=== PATIENT | male | born 1985 | race Caucasian/White ===

== ENCOUNTER 2019-02-22 11:19 | Emergency (ER) | payer MEDICAID ==
[~2019-02-22] VITALS: Ht 180.3 cm; Wt 68.2 kg
[~2019-02-22 11:19] MED LIST: BACTRIM 400-801 TAB PO; PERCOCET 10/3251 TA1 PO
[2019-02-22 11:21] VITALS: Ht 180.3 cm; Wt 68.2 kg
[2019-02-22] MEDS ORDERED: VOLTAREN75 MG PO (12:43)
[2019-02-22] MEDS ORDERED: TYLENOL W/CODEI1 TAB PO (12:46)
[2019-02-22 13:38] VITALS: BP 118/78
== END 2019-02-22 13:39 | disposition home or self-care (01) ==
LOC: D.ER 11:19
DX: S62.306A Unspecified fracture of fifth metacarpal bone, right hand, initial encounter for closed fracture (principal); W22.01XA Walked into wall, initial encounter; F17.210 Nicotine dependence, cigarettes, uncomplicated

== ENCOUNTER 2019-03-06 09:02 | Day surgery (SDC) | payer MEDICAID ==
[~2019-03-06] VITALS: Ht 182.9 cm; Wt 71.2 kg
[~2019-03-06 09:02] MED LIST changes: +TYLENOL W/CODEI1 TAB PO; +VOLTAREN75 MG PO
[2019-03-06] MEDS ORDERED: IBUPROFEN600 MG PO (10:28)
[2019-03-06] MEDS ORDERED: BAYER CHEWABLE81 MG PO (10:29)
[2019-03-06 10:37] VITALS: BP 122/79; Ht 182.9 cm; Wt 71.2 kg
--- NOTE | 2019-03-06 13:56 | NUR ---
PATIENT HAD VISABLE DIRT ON HANDS AND UNDER FINGERNAILS ON OPERATIVE HAND WELL BLACK CAKED ON DIRT ON FEET. WASHED OPERATIVE ARM WITH HIBICLEANS AND DRIED WITH STERILE TOWEL PRIOR TO CHLORAPREP.
[2019-03-06] MEDS ORDERED: HYDROCODON-ACE1 EA10 PO (14:16)
--- NOTE | 2019-03-13 10:50 | OP ---
PATIENT NAME: HOLDEN COATS JR MEDICAL RECORD: [id number] :87 LOCATION:[facility] ADMISSION DATE: SURGEON: MARIBEL MULLINS MD DATE OF OPERATION: 03/06/2019 PREOPERATIVE DIAGNOSES: 1. Displaced fracture of the right fourth metacarpal base. 2. Displaced fracture of the right fifth metacarpal base. 3. Carpal tunnel syndrome of the right wrist. POSTOPERATIVE DIAGNOSES: 1. Displaced fracture of the right fourth metacarpal base. 2. Displaced fracture of the right fifth metacarpal base. 3. Carpal tunnel syndrome of the right wrist. PROCEDURE: 1. Open reduction internal fixation of the right fourth metacarpal base. 2. Open reduction internal fixation of the right fifth metacarpal base. 3. Carpal tunnel release. SURGEON: Maribel Mullins MD TALENT SOURCER: King Stratton. INTRAOPERATIVE COMPLICATIONS: None. SUMMARY OF PATHOLOGY AND FINDINGS: Consistent with the preoperative radiographs and intraoperative fluoroscopy. The patient had displaced fractures of the right metacarpal base, the fourth being intra-articular, fifth being very close. The patient did have a tight transverse carpal ligament consistent with the diagnosis of carpal tunnel syndrome and previous EMGs and NCVs. OPERATIVE SUMMARY IN DETAIL: After obtaining the appropriate preoperative orthopedic surgery consent as well as anesthetic consultation, evaluation and clearance, the patient was brought to the operating room and placed on the operating table in a supine position. After adequate general laryngeal mask airway was administered, tourniquet was placed on the proximal aspect of the right upper extremity. Right upper extremity was then prepped and draped in routine sterile fashion. The arm was elevated and exsanguinated, tourniquet was inflated to 250 mmHg. Under fluoroscopic guidance, incision was made midline along the fifth metacarpal base taken down to the level of the fracture, which was identified. After fracture hematoma as well as early healing components were removed, the fracture was held in an anatomic position by King Stratton. It was provisionally pinned under fluoroscopic guidance and then a 1.7 plate by [place] T-shaped was placed and a combination of a serial and sequential drill and fill technique were done with both locking and nonlocking screws. Again, under fluoroscopic evaluation, this did result in anatomic episcopal of the patient's fracture. Second incision was made over the dorsum of the fourth metacarpal made somewhat on the radial side as to increase the incisional width area. The incision was then taken down to the level of the fracture, which was again identified and found to be displaced approximately 5 mm. After removal of all fracture hematoma as well as early healing components, again the fracture was held in place by King Stratton that was provisionally pinned into an anatomic position as seen on fluoroscopy. At this point, a small L-shaped plate was placed, the 1.7 Mod hand set from [employer] Again, serial and sequential drill OPERATIVE REPORT [id number] HOLDEN COATS JR and fill technique was used with a combination of both compression and locking screws. Having completed this, radiographs were taken and sent to radiology for final evaluation. The incision was then made in line with the fourth metacarpal ray on the palmar aspect, taken down to the level of the distal aspect of the transverse carpal ligament. It was incised to reveal the median nerve, which was then protected by a [place] elevator. [employer] light knife was then used to incise the entire transverse carpal ligament under direct visualization to the proximal wrist crease. Wounds were then irrigated appropriately and closed by King Stratton with a combination of 2-0 Vicryl and 4-0 Prolene. Sterile dressings were applied. Tourniquet was deflated. The patient was awakened, taken to recovery room in stable condition. All final needle and sponge counts were correct. TRANSINT:[id number] Voice Confirmation ID: [id number] DOCUMENT ID: [id number] HARPREET ORNELAS, MARIBEL GOMES at 1050 CC: [id number] DICTATION DATE: 03/10/19 1117 [facility]: 03/10/19 [facility] 03/06/19 [place] [id number] [place] [id number]
== END 2019-03-06 17:03 | disposition home or self-care (01) ==
LOC: D.OPS 09:02 → D.PAN 16:15 → D.OPS 17:03
PROVIDERS: ATTEND Orthopaedic Surgery
DX: S62.314A Displaced fracture of base of fourth metacarpal bone, right hand, initial encounter for closed fracture (principal); S62.316A Displaced fracture of base of fifth metacarpal bone, right hand, initial encounter for closed fracture; X58.XXXA Exposure to other specified factors, initial encounter; G56.01 Carpal tunnel syndrome, right upper limb

== ENCOUNTER 2019-05-11 12:32 | Emergency (ER) | payer MEDICAID ==
[~2019-05-11] VITALS: Ht 182.9 cm; Wt 68.2 kg
[~2019-05-11 12:32] MED LIST changes: +BAYER CHEWABLE81 MG PO; +HYDROCODON-ACE1 EA10 PO; +IBUPROFEN600 MG PO
[2019-05-11 12:42] VITALS: Ht 182.9 cm; Wt 68.2 kg
[2019-05-11 13:21] LABS: CALC OSMOLALITY 282 mosm/kg (275-300); CALCIUM 9.3 mg/dL (8.5-10.1); CARBON DIOXIDE 28.4 mmol/L (21.0-32.0); CHLORIDE - SERUM 105 mmol/L (98-107); CREATININE - SERUM 1.1 mg/dL (0.6-1.3); GLUCOSE 93 mg/dL (74-106); POTASSIUM - SERUM 4.4 mmol/L (3.5-5.1); SODIUM 140 mmol/L (136-145); UREA NITROGEN 24 mg/dL (7-18); eGFR NON AFRICAN AMERICAN 82 mL/min (90-120)
[2019-05-11 13:25] LABS: BASOPHILS 0.3 % (0-2); EOSINOPHILS 4.3 % (0-7); HEMATOCRIT 40.8 % (42.0-54.0); HEMOGLOBIN 13.7 g/dL (13.5-17.5); IMMATURE GRANULOCYTES 0.3 % (0-5); LYMPHOCYTES 32.7 % (15-50); MCH 30.3 pg (26.0-34.0); MCHC 33.6 g/dL (31.0-37.0); MCV 90.3 fL (80.0-100.0); MEAN PLATELET VOLUME 8.6 fL (7.4-10.4); MONOCYTES 10.8 % (2-11); NEUTROPHILS 51.6 % (40-80); RBC 4.52 10x6/uL (4.20-6.10); RDW 14.5 % (11.5-14.5); WBC 5.8 10x3/uL (4.8-10.8)
[2019-05-11 13:26] LABS: PLATELET COUNT 357 10x3/uL (130-400)
[2019-05-11 13:28] LABS: APTT 29.4 SECONDS (22.8-39.4); INR 0.97 (0.85-1.17); PROTIME 12.4 SECONDS (11.6-15.0)
[2019-05-11 13:36] LABS: ALBUMIN 3.6 g/dL (3.4-5.0); ALKALINE PHOSPHATASE 121 U/L (46-116); ALT (SGPT) 36 U/L (10-68); BILIRUBIN - TOTAL 0.12 mg/dL (0.2-1.3); CKMB 10.7 U/L (0.0-3.6); CREATINE KINASE 465 UL (21-232); PROTEIN - SERUM 7.3 g/dL (6.4-8.2); TROPONIN-I < 0.017 ng/mL (0.000-0.060)
[2019-05-11 18:23] VITALS: BP 128/64
== END 2019-05-11 18:24 | disposition home or self-care (01) ==
LOC: D.ER 12:32
PROVIDERS: Family Medicine
DX: R07.9 Chest pain, unspecified (principal); Z72.0 Tobacco use